=== PATIENT | female | born 1955 | race African-American/Black ===

== ENCOUNTER 2019-08-13 19:10 | Inpatient (IN) | payer MEDICARE, MEDICAID ==
[~2019-08-13] VITALS: Ht 160 cm; Wt 79.8 kg
[~2019-08-13 19:10] MED LIST: LOSA25TA3 PO; METF-414 PO
[2019-08-13] MEDS ORDERED: ONDANSETRON HCL 4MG/2ML INJ IV ONE (20:15)
[2019-08-13] MEDS ORDERED: MORPHINE SULFATE 4 MG/ML CPJ (NOT FOR IM USE) IV ONE (20:15)
[2019-08-13 20:40] LABS: BASOPHILS % 0.3 % (0.0-2.0); EOSINOPHILS % 4.3 % (0.0-5.0); HEMATOCRIT. 34.6 % (36.0-48.0); HEMOGLOBIN. 11.5 g/dL (12.0-16.0); MEAN CORPUSCULAR HEMOGLOBIN 28.2 pg (28.0-32.0); MEAN PLATELET VOLUME 9.2 fl (7.4-10.4); MONOCYTES % 8.1 % (2.0-8.0); NEUTROPHILS % 55.3 % (40.0-76.0); PLATELET 175 x1000/uL (130-400); RED BLOOD CELL COUNT 4.07 mill/uL (4.2-5.4); RED CELL DISTRIBUTION WIDTH 14.7 % (11.6-14.6)
[2019-08-13 20:44] LABS: CHLORIDE 107 mEq/L (98-107)
[2019-08-13] MEDS ORDERED: FUROSEMIDE 20MG/2ML VIAL IVP ONE (22:30)
[2019-08-14 00:10] VITALS: BP 152/54
[2019-08-14] MEDS ORDERED: MAGNESIUM/ALUMINUM HYDROXIDE/SIMETHICONE 30ML UDC PO PRN (01:15)
[2019-08-14] MEDS ORDERED: DOCUSATE SODIUM 100MG CAPSULE PO PRN (01:15)
[2019-08-14] MEDS ORDERED: GUAIFENESIN 200MG/10ML SUGAR FREE UDC PO PRN (01:15)
[2019-08-14] MEDS ORDERED: HYDROCODONE/ACETAMINOPHEN 5/325MG TABLET PO PRN (01:15)
[2019-08-14] MEDS ORDERED: ACETAMINOPHEN 325MG TABLET PO PRN (01:15)
[2019-08-14] MEDS: MORPHINE SULFATE 2 MG/ML CPJ (NOT FOR IM USE) IV PRN (02:04)
[2019-08-14 08:00] VITALS: BP 145/67
[2019-08-14 08:00] LABS: CREATINE KINASE 37 IU/L (26-192)
[2019-08-14 08:01] LABS: CREATINE KINASE MB FRACTION < 1.0 ng/mL (0.5-3.6)
[2019-08-14] MEDS: ASPIRIN 81MG EC TABLET PO SCH (08:42)
[2019-08-14] MEDS: ENOXAPARIN 40MG/0.4ML SYR SUBCUT SCH (08:42)
[2019-08-14] MEDS: AMLODIPINE 10MG TABLET PO SCH (08:42)
[2019-08-14] MEDS: METFORMIN HCL 500MG TABLET PO SCH ×2 (10:47→17:02)
[2019-08-14] MEDS: ONDANSETRON HCL 4MG/2ML INJ IV PRN (18:26)
[2019-08-14 20:00] VITALS: BP 151/66
[2019-08-14 20:25] LABS: CREATINE KINASE 37 IU/L (26-192)
[2019-08-14 20:27] LABS: CREATINE KINASE MB FRACTION < 1.0 ng/mL (0.5-3.6)
[2019-08-14] MEDS ORDERED: DEXTROSE 50% WATER 50ML SYRINGE IV PRN (20:30)
[2019-08-14] MEDS: INSULIN LISPRO 100 UNITS/ML SUBCUT SCH (20:55)
[2019-08-14] MEDS: BLOOD SUGAR DIAGNOSTIC STRIP TEST SCH (20:55)
[2019-08-14] MEDS: ZOLPIDEM TARTRATE 5MG TABLET PO PRN (20:59)
[2019-08-15 04:00] VITALS: BP 184/74
[2019-08-15] MEDS: CLONIDINE 0.1MG TABLET PO PRN ×2 (04:43→20:13)
[2019-08-15] MEDS: MORPHINE SULFATE 2 MG/ML CPJ (NOT FOR IM USE) IV PRN ×2 (04:53→20:12)
[2019-08-15] MEDS: ONDANSETRON HCL 4MG/2ML INJ IV PRN (04:53)
[2019-08-15 06:36] LABS: BASOPHILS % 0.3 % (0.0-2.0); HEMATOCRIT. 38.4 % (36.0-48.0); HEMOGLOBIN. 12.9 g/dL (12.0-16.0); LYMPHOCYTES % 31.4 % (20.0-50.0); MEAN CORPUSCULAR HEMOGLOBIN 28.3 pg (28.0-32.0); MEAN CORPUSCULAR VOLUME 84.6 fL (81.0-99.0); MEAN PLATELET VOLUME 9.9 fl (7.4-10.4); MONOCYTES % 6.1 % (2.0-8.0); NEUTROPHILS % 59.2 % (40.0-76.0); PLATELET 221 x1000/uL (130-400); RED BLOOD CELL COUNT 4.54 mill/uL (4.2-5.4); RED CELL DISTRIBUTION WIDTH 14.8 % (11.6-14.6)
[2019-08-15] MEDS: INSULIN LISPRO 100 UNITS/ML SUBCUT SCH ×4 (06:59→20:24)
[2019-08-15] MEDS: BLOOD SUGAR DIAGNOSTIC STRIP TEST SCH ×4 (06:59→20:23)
[2019-08-15 08:00] VITALS: BP_SYST 141; BP_SYST 148; BP_DIAS 64
[2019-08-15 08:19] LABS: CHLORIDE 103 mEq/L (98-107)
[2019-08-15 08:29] LABS: LDL CHOLESTEROL 73 mg/dL (5-100)
[2019-08-15 08:30] LABS: HDL CHOLESTEROL 40 mg/dL (40-59)
[2019-08-15] MEDS: AMLODIPINE 10MG TABLET PO SCH (08:57)
[2019-08-15] MEDS: METFORMIN HCL 500MG TABLET PO SCH ×3 (08:58→17:33)
[2019-08-15] MEDS: ASPIRIN 81MG EC TABLET PO SCH (08:58)
[2019-08-15] MEDS: LOSARTAN POTASSIUM 25 MG TABLET PO SCH (08:58)
[2019-08-15] MEDS: ENOXAPARIN 40MG/0.4ML SYR SUBCUT SCH (08:58)
[2019-08-15] MEDS ORDERED: REGADENOSON 0.4 MG/5 ML IV ONE ×2 (09:30→13:01)
[2019-08-15 12:00] VITALS: BP 148/64
[2019-08-15 13:15] LABS: T4 FREE 1.11 ng/dL (0.76-1.46)
[2019-08-15 20:00] VITALS: BP 162/72
[2019-08-15 21:06] LABS: CREATINE KINASE 42 IU/L (26-192); CREATINE KINASE MB FRACTION < 1.0 ng/mL (0.5-3.6)
[2019-08-15] MEDS: ZOLPIDEM TARTRATE 5MG TABLET PO PRN (22:45)
[2019-08-16] VITALS: BP 144/56
[2019-08-16 04:00] VITALS: BP 149/69
[2019-08-16] MEDS: BLOOD SUGAR DIAGNOSTIC STRIP TEST SCH (06:52)
[2019-08-16] MEDS: INSULIN LISPRO 100 UNITS/ML SUBCUT SCH (06:52)
[2019-08-16 07:39] LABS: CREATINE KINASE 38 IU/L (26-192)
[2019-08-16 07:44] LABS: CREATINE KINASE MB FRACTION < 1.0 ng/mL (0.5-3.6)
[2019-08-16] MEDS: METFORMIN HCL 500MG TABLET PO SCH (08:00)
[2019-08-16 08:15] VITALS: BP 153/74
[2019-08-16] MEDS ORDERED: ASPIRIN 81MG TABLET PO SCH (09:00)
[2019-08-16] MEDS: AMLODIPINE 10MG TABLET PO SCH (10:19)
[2019-08-16] MEDS: LOSARTAN POTASSIUM 25 MG TABLET PO SCH (10:20)
[2019-08-16] MEDS: ENOXAPARIN 40MG/0.4ML SYR SUBCUT SCH (10:21)
[2019-08-16 10:30] VITALS: BP 148/65
== END 2019-08-16 11:30 | disposition home or self-care (01) | DRG 303 ==
LOC: ER 19:10 → EDBEDREQTM 22:25 → EDBEDREQ 22:25 → ENRESERV 22:52 → 8WST 23:14 → CANBEDREQ 08-14 03:25
PROVIDERS: ADMIT Hospitalist; ATTEND Hospitalist
DX: I25.119 Atherosclerotic heart disease of native coronary artery with unspecified angina pectoris (principal); E11.51 Type 2 diabetes mellitus with diabetic peripheral angiopathy without gangrene; F17.210 Nicotine dependence, cigarettes, uncomplicated; M79.671 Pain in right foot; I10 Essential (primary) hypertension; E78.5 Hyperlipidemia, unspecified; G51.0 Bell's palsy; Z98.891 History of uterine scar from previous surgery; I25.2 Old myocardial infarction; Z79.84 Long term (current) use of oral hypoglycemic drugs
CPT/HCPCS: 36415; 71045; 74176; 78452; 80061; 82550; 82553; 82962; 83036; 83880; 84439; 84443; 84484; 85379; 93005; 93017; 93306; 93922; 93971; 99285; A9500; J1650; J1940; J2270; J2405; J2785